=== PATIENT | female | born 1950 | race Caucasian/White ===

== ENCOUNTER → 2023-09-07 14:12 | Outpatient (REF) | payer MEDICARE, OTHER, SELFPAY | LOC: WDC 14:12 | PROVIDERS: ATTENDING PHYSICIAN Internal Medicine | DX: Z12.31 Encounter for screening mammogram for malignant neoplasm of breast (principal); R92.8 Other abnormal and inconclusive findings on diagnostic imaging of breast | CPT/HCPCS: 76642; 77063; 77067 ==

== ENCOUNTER → 2024-02-26 11:45 | Outpatient (REF) | payer MEDICARE, OTHER, SELFPAY | LOC: RAD 11:45 | PROVIDERS: ATTENDING PHYSICIAN Internal Medicine Rheumatology | DX: M25.511 Pain in right shoulder (principal) | CPT/HCPCS: 73030 ==

== ENCOUNTER 2024-05-07 09:55 | Outpatient (RCR) | payer MEDICARE, OTHER, SELFPAY | END 2024-05-07 23:59 | disposition home or self-care (01) | LOC: RPT 09:55 | PROVIDERS: ATTENDING PHYSICIAN Internal Medicine Rheumatology | DX: M75.51 Bursitis of right shoulder (principal); Z73.6 Limitation of activities due to disability | CPT/HCPCS: 97010; 97110; 97140; 97162 ==

== ENCOUNTER 2024-06-19 11:15 | Outpatient (RCR) | payer MEDICARE, OTHER, SELFPAY | END 2024-06-19 23:59 | disposition home or self-care (01) | LOC: RPT 11:15 | PROVIDERS: ATTENDING PHYSICIAN Internal Medicine Rheumatology | DX: M75.51 Bursitis of right shoulder (principal); Z73.6 Limitation of activities due to disability | CPT/HCPCS: 97010; 97110; 97140 ==

== ENCOUNTER 2024-07-16 13:33 | Outpatient (RCR) | payer MEDICARE, OTHER, SELFPAY | END 2024-07-16 23:59 | disposition home or self-care (01) | LOC: RPT 13:33 | PROVIDERS: ATTENDING PHYSICIAN Internal Medicine Rheumatology | DX: M75.51 Bursitis of right shoulder (principal); Z73.6 Limitation of activities due to disability; M62.81 Muscle weakness (generalized) | CPT/HCPCS: 97010; 97110; 97140 ==

== ENCOUNTER 2024-07-23 11:13 | Outpatient (RCR) | payer MEDICARE, OTHER, SELFPAY | END 2024-07-23 12:07 | disposition home or self-care (01) | LOC: RPT 11:13 | PROVIDERS: ATTENDING PHYSICIAN Internal Medicine Rheumatology | DX: M75.51 Bursitis of right shoulder (principal); Z73.6 Limitation of activities due to disability; M62.81 Muscle weakness (generalized) | CPT/HCPCS: 97010; 97110 ==

== ENCOUNTER → 2024-12-06 07:23 | Outpatient (REF) | payer MEDICARE, OTHER, SELFPAY | LOC: RAD 07:23 | PROVIDERS: ATTENDING PHYSICIAN Internal Medicine; FAMILY PHYSICIAN Internal Medicine | DX: R05.2 Subacute cough (principal); D84.9 Immunodeficiency, unspecified | CPT/HCPCS: 71046 ==

== ENCOUNTER → 2025-02-20 10:18 | Outpatient (REF) | payer MEDICARE, OTHER, SELFPAY | LOC: HWRAD 10:18 | PROVIDERS: ATTENDING PHYSICIAN Physician Assistant; FAMILY PHYSICIAN Internal Medicine | DX: R63.4 Abnormal weight loss (principal); R53.83 Other fatigue | CPT/HCPCS: 74176 ==

== ENCOUNTER 2025-02-27 19:31 | Inpatient (IN) | payer MEDICARE, OTHER, SELFPAY ==
[2025-02-27 13:26] VITALS: BP 194/103
--- NOTE | 2025-02-27 15:52 | ED.GENMED ---
History of Present Illness
<Thang Casey PA-C - Last Filed: 02/28/25 18:13>
General
Chief Complaint: Abnormal Lab Value
Time Seen by Provider: 02/27/25 15:32
History of Present Illness
History of Present Illness:
74-year-old female with history of Churg-Nathalia syndrome, hypertension, and hyperlipidemia presents to the emergency department due to a reportedly positive blood culture. She states she has been seeing her paint preparer for ongoing symptoms that
include fatigue, malaise, and periods of tachycardia that have been ongoing for the past 3 months. She apparently had labs done earlier this week and was told she had a 'positive blood culture for staph'. I have no records available at initial
evaluation and is uncertain whether this was Staph aureus or Staph epidermidis. She notes that at initial onset of symptoms she had a positive Lyme titer and was treated with doxycycline however did not feel any improvement. Denies shortness of
breath or dyspnea. Does have a poor appetite and unintentional weight loss but denies any night sweats.
Review of Systems
<Thang Casey PA-C - Last Filed: 02/28/25 18:13>
Review of Systems
Allergies reviewed?: Yes
All Other Systems: ROS reviewed and negative except as documented in HPI and ROS
Phy Exam
<Thang Casey PA-C - Last Filed: 02/28/25 18:13>
Physical Exam
Physical Exam:
GEN: Well appearing, NAD, WDWN
HEENT: Oral mucosa moist, no scleral icterus
Cardiac: Regular rate and rhythm, no murmur
Lung: No respiratory distress, no tachypnea, lungs clear to auscultation
MSK: No gross deformity or injuries
Skin: Good color, no pallor or jaundice, no rashes
Neuro: AO x3, moves all extremities freely
Psych: Calm, cooperative
Course
<Thang Casey PA-C - Last Filed: 02/28/25 18:13>
Orders/Labs/Results
Orders:
Orders
02/27/25 Breakfast
Regular
At Your Request: Full Participation
Does patient need a safe tray?: No
02/27/25 16:19
Complete Blood Count/With Diff Urgent
Comprehensive Metabolic Panel Urgent
Blood Culture Q30M
GERI Source: Blood/Venous
Specimen Description:
Blood Culture Q30M
GERI Source: Blood/Venous
Specimen Description:
02/27/25 17:29
Azithromycin 500 mg/250 ml [Zithromax Infusion] 500 mg in 250 ml IV NOW
CefTRIAXone [Rocephin] 1,000 mg IV NOW STA
02/27/25 17:30
0.9% Sodium Chloride 500 ml [Nss] 500 ml IV BOLUS
02/27/25 17:52
CRP [C-Reactive Protein] Urgent
ESR [Erythrocyte Sed Rate] Urgent
LDH Urgent
02/27/25 18:56
CR Chest - 2 Views Urgent
Comment:
Reason For Exam: weakness, night sweats
02/27/25 19:00
Admit/Transfer Patient As Directed
Co-Sign Provider:
Level of Care: Inpatient admission
Assign to:: Medical/Surgical
Physician / Group: Htay
Diagnosis: Pneumonia
Reason for Hospitalization: IV abx
Expected length of stay greater than two midnights?: Yes
ELOS- Estimated Length of Stay in days: 3
I certify the patient meets the requirements for IP care: Yes
PRN Pain Medication Management As Directed
May give lesser potent ordered pain med per pt: Yes
preference::
Protocol:: Medication orders for pain may be administered in a
manner that supports deferring to patient preference
when the pt is:
- Requesting an ordered lesser potent pain medication.
Least to most potent pain medications are defined
as: acetaminophen < NSAID < tramadol < opioids
(morphine, oxycodone, hydromorphone).
- Requesting a lesser dose of the same medication IF
ORDERED.
- Requesting a less intrusive route of administration
if both routes are prescribed by the provider (PO <
IV).
02/27/25 19:01
Code Status As Directed
Resuscitation Status: Full Code
02/27/25 21:21
0.9% Sodium Chloride 1000 ml [Nss] 1,000 ml IV 100 mls/hr
Acetaminophen [Tylenol] 650 mg PO Q4HPRN PRN
02/27/25 21:21
Activity As Directed
Activity Level: Out of Bed-Early Mobility
With Assistance
Vital Signs As Directed
Frequency: Per unit guidelines
DX Deep Vein Thrombosis Video Routine
02/27/25 22:00
Rosuvastatin Calcium [Crestor] 10 mg PO HS
02/28/25 00:00
Cefepime HCl [Maxipime] 1,000 mg IV Q6H
02/28/25 07:32
Basic Metabolic Panel IN AM
Complete Blood Count/No Diff IN AM
02/28/25 08:00
Amlodipine [Norvasc] 5 mg PO DAILY
Doxycycline [Vibramycin] 100 mg PO Q12
02/28/25 18:00
Enoxaparin Sodium [Lovenox] 40 mg SC QPM
Abnormal Lab Results
02/27/25 02/27/25
16:19 17:52
WBC 13.2 H 10^3/uL
(4.8-10.8)
RBC 3.98 L 10^6/uL
(4.20-5.40)
Hgb 11.0 L g/dL
(12.0-16.0)
Hct 34.0 L %
(37.0-47.0)
MCHC 32.4 L g/dL
(33.0-37.0)
RDW 14.9 H %
(11.5-14.5)
Plt Count 595 H 10^3/uL
(130-400)
Abs Immat Gran (auto) 0.1 H 10^3/uL
(0-0.05)
Absolute Neuts (auto) 9.2 H 10^3/uL
(1.4-6.5)
Absolute Monos (auto) 1.0 H 10^3/uL
(0.1-0.6)
Lymphocytes % 19.1 L %
(20.5-51.1)
ESR 88 H mm/hour
(0-20)
Creatinine 1.1 H mg/dL
(0.6-1.0)
Glucose 103 H mg/dl
(70-99)
C-Reactive Protein 46.80 H mg/L
(0.0-10.00)
02/27/25 16:19
02/27/25 16:19
Vital Signs
Initial and Last Documented VS:
Initial Vital Signs
Temp Pulse Resp BP Pulse Ox
98.4 F 103 18 194/103 99
02/27/25 13:26 02/27/25 13:26 02/27/25 13:26 02/27/25 13:26 02/27/25 13:26
Last Documented Vital Signs
Temp Pulse Resp BP Pulse Ox
98.9 F 73 18 135/73 96
02/28/25 15:00 02/28/25 15:00 02/28/25 15:00 02/28/25 15:00 02/28/25 15:00
<Elliot Cox MD - Last Filed: 02/27/25 17:31>
Orders/Labs/Results
Orders:
Orders
02/27/25 Breakfast
Regular
At Your Request: Full Participation
Does patient need a safe tray?: No
02/27/25 16:19
Complete Blood Count/With Diff Urgent
Comprehensive Metabolic Panel Urgent
Blood Culture Q30M
GERI Source: Blood/Venous
Specimen Description:
Blood Culture Q30M
GERI Source: Blood/Venous
Specimen Description:
02/27/25 17:29
Azithromycin 500 mg/250 ml [Zithromax Infusion] 500 mg in 250 ml IV NOW
CefTRIAXone [Rocephin] 1,000 mg IV NOW STA
02/27/25 17:30
0.9% Sodium Chloride 500 ml [Nss] 500 ml IV BOLUS
02/27/25 17:52
CRP [C-Reactive Protein] Urgent
ESR [Erythrocyte Sed Rate] Urgent
LDH Urgent
02/27/25 18:56
CR Chest - 2 Views Urgent
Comment:
Reason For Exam: weakness, night sweats
02/27/25 19:00
Admit/Transfer Patient As Directed
Co-Sign Provider:
Level of Care: Inpatient admission
Assign to:: Medical/Surgical
Physician / Group: Htay
Diagnosis: Pneumonia
Reason for Hospitalization: IV abx
Expected length of stay greater than two midnights?: Yes
ELOS- Estimated Length of Stay in days: 3
I certify the patient meets the requirements for IP care: Yes
PRN Pain Medication Management As Directed
May give lesser potent ordered pain med per pt: Yes
preference::
Protocol:: Medication orders for pain may be administered in a
manner that supports deferring to patient preference
when the pt is:
- Requesting an ordered lesser potent pain medication.
Least to most potent pain medications are defined
as: acetaminophen < NSAID < tramadol < opioids
(morphine, oxycodone, hydromorphone).
- Requesting a lesser dose of the same medication IF
ORDERED.
- Requesting a less intrusive route of administration
if both routes are prescribed by the provider (PO <
IV).
02/27/25 19:01
Code Status As Directed
Resuscitation Status: Full Code
02/27/25 21:21
0.9% Sodium Chloride 1000 ml [Nss] 1,000 ml IV 100 mls/hr
Acetaminophen [Tylenol] 650 mg PO Q4HPRN PRN
02/27/25 21:21
Activity As Directed
Activity Level: Out of Bed-Early Mobility
With Assistance
Vital Signs As Directed
Frequency: Per unit guidelines
DX Deep Vein Thrombosis Video Routine
02/27/25 22:00
Rosuvastatin Calcium [Crestor] 10 mg PO HS
02/28/25 00:00
Cefepime HCl [Maxipime] 1,000 mg IV Q6H
02/28/25 07:32
Basic Metabolic Panel IN AM
Complete Blood Count/No Diff IN AM
02/28/25 08:00
Amlodipine [Norvasc] 5 mg PO DAILY
Doxycycline [Vibramycin] 100 mg PO Q12
02/28/25 18:00
Enoxaparin Sodium [Lovenox] 40 mg SC QPM
Abnormal Lab Results
02/27/25 02/27/25
16:19 17:52
WBC 13.2 H 10^3/uL
(4.8-10.8)
RBC 3.98 L 10^6/uL
(4.20-5.40)
Hgb 11.0 L g/dL
(12.0-16.0)
Hct 34.0 L %
(37.0-47.0)
MCHC 32.4 L g/dL
(33.0-37.0)
RDW 14.9 H %
(11.5-14.5)
Plt Count 595 H 10^3/uL
(130-400)
Abs Immat Gran (auto) 0.1 H 10^3/uL
(0-0.05)
Absolute Neuts (auto) 9.2 H 10^3/uL
(1.4-6.5)
Absolute Monos (auto) 1.0 H 10^3/uL
(0.1-0.6)
Lymphocytes % 19.1 L %
(20.5-51.1)
ESR 88 H mm/hour
(0-20)
Creatinine 1.1 H mg/dL
(0.6-1.0)
Glucose 103 H mg/dl
(70-99)
C-Reactive Protein 46.80 H mg/L
(0.0-10.00)
02/27/25 16:19
02/27/25 16:19
Vital Signs
Initial and Last Documented VS:
Initial Vital Signs
Temp Pulse Resp BP Pulse Ox
98.4 F 103 18 194/103 99
02/27/25 13:26 02/27/25 13:26 02/27/25 13:26 02/27/25 13:26 02/27/25 13:26
Last Documented Vital Signs
Temp Pulse Resp BP Pulse Ox
98.9 F 73 18 135/73 96
02/28/25 15:00 02/28/25 15:00 02/28/25 15:00 02/28/25 15:00 02/28/25 15:00
Gregorylt;Thang Casey PA-C - Last Filed: 02/28/25 18:13>
MDM/Problems Addressed
MDM/Problems Addressed:
Several [place] connect messages sent to rheumatology team involving this patient's care in order to obtain blood cultures. I did also call the rheumatology office and was unable to speak with anyone. We will resend blood cultures at this time as
either way, whether epidermidis or aureus, repeat cultures will be warranted. Will also send basic labs. Unfortunately during my discussion with the patient about the potential differences in plan of care between the 2 bacterial species she
informing that she no longer wished to be seen by a physician assistant education director, care will be transferred to attending physician Dr. Cox
<Thang Casey PA-C - Last Filed: 02/28/25 18:13>
*Pulse Oximetry
SaO2: 99
Patient hypoxic: no
*Critical Care Note
Total Time (30-74mins, 75-104mins- exclusive of procedures): Not Applicable
ED Attending Note
<Thang Casey PA-C - Last Filed: 02/28/25 18:13>
-
Portions of this chart may have been created with voice recognition software.� Occasional wrong word or��sound alike� substitutions may have occurred due to the inherent limitations of voice recognition software.
<Elliot Cox MD - Last Filed: 02/27/25 17:31>
ED Attending Note
Patient seen and examined by attending physician: Yes
ED Attending Note:
I have seen and evaluated the patient with a [id number] encounter. I have spoken to the advance practicer provider and involved in the medical history, the physical exam, medical decision making.
Evaluation and management service: agree unless noted differently below.
Results interpretation: agree unless noted differently below.
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
in the setting of recent malaise. The short story is that the patient was sent for outpatient blood work on 02/24 which included a set of blood cultures; she received a call today that her blood culture was positive. We reviewed the results that
were faxed over from her paint preparer who initially sent the studies�it appears the blood culture was positive in one bottle for Staph epidermidis. The rest of her lab work interestingly showed elevation of inflammatory markers as well as a
marked leukocytosis to almost 18.
Patient reports that she has been feeling unwell for months. It sounds like she initially had a long bout of COVID related symptoms in November that eventually resolved with time and supportive care. Then in early December she began having joint pains
and was seen by her paint preparer who thought it could be autoimmune issue�she was started on a taper of prednisone at the time which seem to help with the joint pains. As part of her workup for her joint pain she was tested for Lyme's which was
positive and she was on a 30-day course of doxycycline which she finished in early January. She says that after completing doxycycline she felt better for a few days but then in mid January she began to feel very unwell once again�she reports
symptoms have been consistent since then. She reports generalized malaise. She says she feels palpitations and notes that she is having bouts of tachycardia. She says that she has had night sweats and tactile fever (she says measured temperature
max 99 �F). She has had persistent cough which she says is worse at nighttime. She does not feel short of breath and has not noticed any chest pain. She denies any abdominal pain, vomiting or diarrhea although she does report poor appetite. She
says that in addition to all of the symptoms over the past 6 months she has had a roughly 30 pound unintentional weight loss. She was ultimately seen once again by her paint preparer who ultimately ordered outpatient blood testing as well as a CT
of the chest/abdomen/pelvis�lab results were as noted above including blood culture positive for Staph epidermidis and CT was done here at [place] and seem to show pneumonia in the right midlung.
Physical exam:
General: Awake, alert, oriented x3; no acute distress
Head: Normocephalic, atraumatic
Eyes: Conjunctiva normal, EOMI
Throat: Airway intact, handling secretions
Neck: Trachea midline, supple without meningismus
Lungs: Clear to auscultation bilaterally, no wheezing, rales, rhonchi
Heart: Regular rate and rhythm, no murmurs, gallops, or rubs appreciated
Abd: Soft, non distended, nontender
Neuro: Grossly intact
Skin: Warm and dry with no rash noted
Extremities: No edema in extremities, equal pulses in all extremities
Medical Decision Makin-year-old female presents to the ER after being called for positive outpatient blood culture; this test was sent in the setting of multiple symptoms including malaise, palpitations/tachycardia, cough, night sweats/chills
and low-grade fever. Vitals here were significant for hypertension and tachycardia but no tachypnea or hypoxia-by my assessment blood pressure and tachycardia had improved. Labs were sent off including a CBC which showed persistent leukocytosis to
13.2, elevated platelet count. Chemistry showed creatinine 1.1 increased from prior baseline in 2020 although not significantly changed from labs drawn Monday (creatinine 1.04 at that time). Overall regarding her presenting complaint suspect that
the positive blood cultures and a contaminant given it was positive for Staph epidermidis and patient does not have artificial valve/hardware. We did resend blood cultures today which should be followed up. Suspect that finding on CT likely
represents pneumonia given her overall clinical picture; she is immune suppressed on rituximab. Will plan to admit on IV antibiotics to treat presumed pneumonia for now can follow-up blood cultures which again are likely contaminant rather than
true positive. Case discussed with hospitalist for admission.
Discharge Plan
Departure
Patient Disposition: Admit
Date of Disposition: 02/27/25
Time of Disposition: 17:32
Admit to doctor: Qiana
Presentation/result/management discussed w/ accepting MD/DO: Hospitalist
Discharge Problem:
Pneumonia, Blood culture positive
Interventions
Interventions:
*Risk Screen - Suicide Last Done: 02/27/25 21:26
*General Assessment Last Done: 02/27/25 16:41
*Neglect/Abuse Screening Last Done: 02/27/25 16:41
*ED- Fall Risk Assessment Last Done: 02/27/25 16:41
*ED COVID-19 Vaccine History Last Done: 02/27/25 21:26
*ED Influenza Vaccine History Last Done: 02/27/25 16:41
*Nursing Disposition Last Done: 02/27/25 21:17
Discharge Date and Time
Discharge Date/Time: 02/27/25 21:18
[2025-02-27 16:19] VITALS: BMI 33.5
[2025-02-27 16:23] VITALS: BP 142/77
[2025-02-27 16:30] LABS: Hematocrit 34.0 % (37.0-47.0); Hemoglobin 11.0 g/dL (12.0-16.0); Mean Corp Hgb Conc. 32.4 g/dL (33.0-37.0); Mean Corpuscular Volume 85.4 fL (81.0-99.0); Nucleated Red Blood Cells % 0 %; Platelet Count 595 10^3/uL (130-400); Red Cell Dist. Width 14.9 % (11.5-14.5)
[2025-02-27 16:52] LABS: ALT (SGPT) 10 U/L (0-35); AST (SGOT) 14 U/L (14-36); Albumin 3.8 g/dl (3.5-5.0); Alkaline Phosphatase 94 U/L (38-126); Blood Urea Nitrogen 15 mg/dl (7-17); Calcium 10.0 mg/dl (8.4-10.2); Carbon Dioxide 26 mmol/L (22-30); Chloride 106 mmol/L (98-107); Estimated Creatinine Clearance 53 ml/min; Glucose 103 mg/dl (70-99); Potassium 4.5 mmol/L (3.5-5.1); Sodium 139 mmol/L (135-145); Total Protein 6.3 g/dl (6.3-8.2); eGFR 52.40
[2025-02-27] MEDS: ROCEPHIN 1000 MG IV (17:46)
[2025-02-27] MEDS: NSS 500 IV (17:49)
[2025-02-27] MEDS: ZITHROMAX INFUSION 250 IV (17:50)
[2025-02-27 18:19] LABS: LDH 143 U/L (120-246)
[2025-02-27 18:23] LABS: C-Reactive Protein 46.80 mg/L (0.0-10.00)
--- NOTE | 2025-02-27 18:33 | W.PN.UPDATE ---
Update Note
Progress Note Update
This note serves as an addendum to the H&P by secretary specialist Jeanmarie CLARKE
HPI
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
- seen at ER for reportedly POS BCx - Staph epidermidis x 1 bottle
- has been seeing Marketing Operations Specialist for ongoing symptoms
- fatigue, malaise, and periods of tachycardia that have been ongoing for the past 3 months.
- labs done earlier this week - positive BCx for staph
- have no records available at initial evaluation and is uncertain whether this was Staph aureus or Staph epidermidis.
- notes that at initial onset of symptoms she had a positive Lyme titer and was treated with doxycycline however did not feel any improvement.
ROS
Denies shortness of breath or dyspnea.
Does have a poor appetite and unintentional weight loss but denies any night sweats.
PHX
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
Osteopenia of multiple sites
ANCA-associated vasculitis
Mixed hyperlipidemia
Hypercholesterolemia
Nephrolithiasis
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
Essential (primary) hypertension
Relevant VS
02/27/25
13:26 02/27/25
16:19 02/27/25
16:23
Temp 98.4 F
Pulse 103 77
Resp Rate 18 18
Blood pressure 194/103 142/77
SaO2 99 98
Actual Weight 96.9 kg
PE
Gen: Not toxic
HEENT: anicteric
Neck: supple
Lungs: No respiratory distress, no tachypnea, lungs clear to auscultation
Cor: RRR S1 S2
Abdomen:�soft , NT, NG
MENTALLY RETARDED TEACHER: AAO#, NFND
MS: no edema
Psych: Calm, cooperative
Relevant Data
10/22/20 02/27/25 02/27/25
11:23 16:19 17:52
WBC 13.2 H
Hgb 11.0 L
Plt Count 595 H
Neutrophils % 69.8
Lymphocytes % 19.1 L
Eosinophils % 2.4
ESR Pending
Potassium 5.1 4.5
Creatinine 0.8 1.1 H
eGFR 52.40
Lactate Dehydrogenase 143
C-Reactive Protein 46.80 H
CXR pending
02/20/25 CT AP l Without Iv Or Oral
1. Abnormal airspace and interstitial opacity in the right middle lobe which is at least partially related to atelectasis. Infectious etiology is not completely excluded. The appearance is not typical for pulmonary malignancy, however this is
incompletely imaged and there are respiratory motion artifacts. Consider further evaluation with follow-up CT chest.
2. No acute intra-abdominal process identified.
3. Hepatic fatty infiltration.
4. Nonobstructive right nephrolithiasis.
5. Simple appearing 3.7 cm cyst along the right adnexa, probable ovarian cyst. Recommen
Last hospitalist admission:
ASSESSMENT & PLAN
Pending Rx reconciliation
02/20 CT AP POS for Abnormal airspace and interstitial opacity in the right middle lobe which is at least partially related to atelectasis.
ZAKI with eGFR 52
- check CXR
- Empiric IV CFP and PO Doxy for now
- f/u BCx
OP POS BCx for Staph epidermidis
- BCx times 2 sent
- POS BCx , to consider evaluation for endocarditis
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
- No longer on PO Prednisone
Essential HTN on ARB
- ZAKI with eGFR 52
- Hold ARB and FU Cr
- c/w Amlodipine
HLD
- c/w Rosuvastastin
DVT Px: LMWH
Code: Full code
IP MS
--- NOTE | 2025-02-27 19:03 | HPS.HSE ---
Family Physician
-
Family Physician: Catalino Flores
Chief Complaint
-
Weakness
History of Present Illness
Patient is a 74 y/o female past medical history of hypertension, hyperlipidemia, and ANCA positive vasculitis with lung involvement on intermittent Rituxan who presents with weakness. Patient reports feeling unwell since the summer. She had COVID
in November and was also treated for Lyme disease. Despite this she has continued to feel poorly. She noted continued low grade fevers as well as intermittent night sweats. Part of her infectious work-up included blood cultures which were positive for
staph epidermis in one bottle. She has had a Abdomen/Pelvis CT scan with noted abnormality in the right lung.
Medical History
Past Medical History
Past Medical History: Reports Other
Additional Past Medical History:
Essential Hypertension
Hyperlipidemia
ANCA-Associated Vasculitis with Lung Involvement
Past Surgical History: Reports Other
Additional Past Surgical History:
Myomectomy
Ankle Surgery
Social History
Tobacco: Non-smoker
Alcohol: None
Family History
Family History: Not pertinent
Allergies / Home Medications
Allergies reflects when Allergies were last updated in [facility].
Home Medications with original date entered in [facility]
Allergy/Medication List:
Allergies
Allergy/AdvReac Type Severity Reaction Status Date / Time
Penicillins Allergy Hives Verified 02/27/25 13:28
Home Medications
amlodipine 5 mg tablet 5 mg PO DAILY 02/27/25
losartan 100 mg tablet 100 mg PO DAILY 02/27/25
rosuvastatin 10 mg tablet 10 mg PO HS 02/27/25
Review of Systems
-
A 12 point ROS was completed and negative except as noted: Yes
Constitutional: Reports Fever and Night Sweats
Respiratory: Reports Cough (Intermittent); Denies Trouble Breathing
Cardiac: Denies Chest Pain or Palpitations
Abdomen/GI: Denies Abdominal Pain
: Denies Dysuria
Physical Exam
Vital Signs
Vital Signs
Temp Pulse Resp BP Pulse Ox
98.4 F 77 18 142/77 98
02/27/25 13:26 02/27/25 16:23 02/27/25 16:23 02/27/25 16:23 02/27/25 16:23
Physical Exam
General: Comfortable and Conversant
HEENT: Anicteric and Moist mucous membranes
Respiratory: Clear and Non Labored Respirations
Cardiac: S1/S2 and Regular Rhythm
GI: Soft and Non Tender
Rectal: Deferred by Provider
Musculoskeletal: No Clubbing and No Cyanosis
Skin: Warm and Dry
Neuro: Awake, Alert, Oriented and Nonfocal/grossly intact
Psych: Calm
Laboratory Results
-
02/27/25 16:19
02/27/25 16:19
Laboratory Results
Total Bilirubin 0.2 mg/dl (0.2-1.3) 02/27/25 16:19
AST 14 U/L (14-36) 02/27/25 16:19
ALT 10 U/L (0-35) 02/27/25 16:19
Alkaline Phosphatase 94 U/L (38-126) 02/27/25 16:19
Data Reviewed
-
Lab Data: Labs Reviewed by me
Impression/Plan
-
Right Middle Lobe Opacity, possible pneumonia vs lung disease related to vasculitis
-Check CXR
-Continue Cefepime and Doxycycline
Positive Blood Culture - 1 bottle with staph epidermis unclear
-Recheck blood cultures x 2
Acute Renal Insufficiency
-Hold losartan
-Give IVFs
-Recheck labs in AM
Essential Hypertension
-Continue amlodipine
-Hold losartan
Hyperlipidemia
-Continue rosuvastatin
ANCA - Associated Vasculitis
-Patient receives intermittent Rituxan
DVT proph: Lovenox
Code Status: Full Code
[2025-02-27 20:54] VITALS: BP 119/83
[2025-02-27 21:35] VITALS: BMI 32.8
--- NOTE | 2025-02-27 21:35 | PTCARENOTE ---
Patient received from the ED on stretcher. Patient ambulated from stretcher to room. Vital signs stable. Oriented to room and call hung within reach.
[2025-02-27] MEDS: NSS 1000 IV (21:57)
[2025-02-27] MEDS: CRESTOR 10 MG PO (21:57)
[2025-02-27 22:03] VITALS: BP 139/68
[2025-02-27] MEDS: STERILE WATER FOR INJECTION 10 ML IV (23:53)
[2025-02-27] MEDS: MAXIPIME 1000 MG IV (23:54)
[2025-02-28 00:12] VITALS: BMI 32.8
[2025-02-28] MEDS: MAXIPIME 1000 MG IV ×4 (06:15→23:32)
[2025-02-28] MEDS: STERILE WATER FOR INJECTION 10 ML IV ×4 (06:15→23:32)
[2025-02-28 07:00] VITALS: BP 142/66
[2025-02-28 07:49] LABS: Hematocrit 34.2 % (37.0-47.0); Hemoglobin 10.4 g/dL (12.0-16.0); Mean Corp Hgb Conc. 30.4 g/dL (33.0-37.0); Mean Corpuscular Volume 87.2 fL (81.0-99.0); Platelet Count 559 10^3/uL (130-400); Red Cell Dist. Width 15.0 % (11.5-14.5)
[2025-02-28] MEDS: VIBRAMYCIN 100 MG PO ×2 (08:06→21:41)
[2025-02-28] MEDS: NORVASC 5 MG PO (08:07)
[2025-02-28 08:20] LABS: Blood Urea Nitrogen 10 mg/dl (7-17); Calcium 9.6 mg/dl (8.4-10.2); Carbon Dioxide 25 mmol/L (22-30); Chloride 108 mmol/L (98-107); Estimated Creatinine Clearance 82 ml/min; Glucose 132 mg/dl (70-99); Potassium 4.7 mmol/L (3.5-5.1); Sodium 140 mmol/L (135-145); eGFR > 60.00
[2025-02-28] MEDS: MUCINEX PO (10:11)
--- NOTE | 2025-02-28 11:15 | W.PN.HOSP.TC ---
Today's Communication/Plan
-
continue Cefepime/Doxy
monitor O2 needs
collect UA and urine tests
monitor blood cultures
Assessment / Plan
Assessment / Plan
Assessment:
Right middle lobe and lower lobe pneumonia
- on CXR
- continue Cefepime/Doxy
- sputum culture
- supportive care, mucolytics, IS/Acapella
Reported Staph bacteremia outpatient
- no records available
- repeat blood cultures pending
Acute Renal Insufficiency
- continue IVF
- holding ARB
Essential Hypertension
- continue amlodipine
- holding ARB
Hyperlipidemia
- continue rosuvastatin
ANCA - Associated Vasculitis
- Patient receives intermittent Rituxan
DVT proph: Lovenox
Code Status: Full Code
Anticipated Discharge: Within 24 hours
Subjective/Interval History
-
Date of Service: February 28, 2025
resting comfortably, no complaints at present
Objective Data
-
Labs:
Laboratory Results
02/28/25
07:32
WBC 12.9 H
Hgb 10.4 L
Hct 34.2 L
Plt Count 559 H
Sodium 140
Potassium 4.7
Chloride 108 H
Carbon Dioxide 25
BUN 10
Creatinine 0.7
Glucose 132 H
Calcium 9.6
Vital Signs:
Vital Signs
Temp Pulse Resp BP Pulse Ox
98.0 F 87 18 142/66 99
02/28/25 07:00 02/28/25 07:00 02/28/25 07:00 02/28/25 07:00 02/28/25 07:00
I&O
02/27/25 02/28/25 03/01/25
06:59 06:59 06:59
Intake Total 240 / 240
Balance 240 / 240
Physical Exam
-
General: Well Nourished and No Apparent Distress
HEENT: Normocephalic and Atraumatic
Respiratory: Negative Wheezes
Cardiac: Regular Rhythm and S1/S2
GI: Soft and Nontender
Neuro: AO x 3
Psych: Calm
Data Reviewed
-
Total Time Spent with Patient (in minutes): 41
Labs: Labs Reviewed by me
[2025-02-28 11:22] VITALS: BMI 32.8
--- NOTE | 2025-02-28 11:49 | CM ---
CM reviewed chart, patient seen bedside with sister, initial assessment completed.
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
Patient resides independently in a multiple story home, four steps to enter through garage, full flight of steps to bedroom.
Patient denies use of DME, denies VN/SNF hx.
PCP Catalino Flores
Pharmacy [facility] [address], confirms prescription coverage (Medicare Part D)
Patient denies insecurities at home.
CM will continue to follow for all d/c planning needs.
Plan; home no needs anticipated
[2025-02-28 12:07] VITALS: BP 150/66; PULSE 78; O2SAT 99
[2025-02-28 12:09] LABS: Urine Character Clear (Clear)
[2025-02-28] MEDS: NSS 1000 IV ×2 (12:09→23:32)
--- NOTE | 2025-02-28 12:16 | PTOTSP ---
Patient demonstrates safe and independent mobility, asymptomatic and vitals stable with activity, no skilled physical therapy needs at this time.
[2025-02-28 12:37] LABS: Urine Urothelial Cell 0-2 /LPF (FEW)
[2025-02-28 12:38] LABS: Urine Red Blood Cell 0-2 /HPF (0-2)
[2025-02-28 15:00] VITALS: BP 135/73
[2025-02-28] MEDS: LOVENOX 40 MG SC (17:33)
[2025-02-28] MEDS: CRESTOR 10 MG PO (21:41)
[2025-02-28] MEDS: MUCINEX 1200 MG PO (21:41)
[2025-02-28 23:10] VITALS: BP 143/65
[2025-03-01] MEDS: STERILE WATER FOR INJECTION 10 ML IV ×2 (06:31→11:07)
[2025-03-01] MEDS: MAXIPIME 1000 MG IV ×2 (06:31→11:08)
[2025-03-01 07:00] VITALS: BP 143/56
[2025-03-01] MEDS: NORVASC 5 MG PO (08:35)
[2025-03-01] MEDS: VIBRAMYCIN 100 MG PO (08:35)
[2025-03-01] MEDS: MUCINEX 1200 MG PO (08:35)
[2025-03-01 09:44] LABS: Hematocrit 30.2 % (37.0-47.0); Hemoglobin 9.7 g/dL (12.0-16.0); Mean Corp Hgb Conc. 32.1 g/dL (33.0-37.0); Mean Corpuscular Volume 85.6 fL (81.0-99.0); Platelet Count 489 10^3/uL (130-400); Red Cell Dist. Width 14.8 % (11.5-14.5)
[2025-03-01 10:13] LABS: Blood Urea Nitrogen 9 mg/dl (7-17); Calcium 9.3 mg/dl (8.4-10.2); Carbon Dioxide 24 mmol/L (22-30); Chloride 108 mmol/L (98-107); Estimated Creatinine Clearance 96 ml/min; Glucose 129 mg/dl (70-99); Potassium 4.0 mmol/L (3.5-5.1); Sodium 139 mmol/L (135-145); eGFR > 60.00
--- NOTE | 2025-03-01 13:04 | W.PN.HOSP.TC ---
Addendum entered and electronically signed by Wilson Velazquez MD 03/05/25 10:37:
ZAKI was present on admission
Original Note:
Today's Communication/Plan
-
dc to home
PCP f/u and labs in 1 week
Assessment / Plan
Assessment / Plan
Assessment:
Right middle lobe and lower lobe pneumonia
- on CXR
- Dc on Cefdinir and Doxy x 12 further days
- sputum culture
- supportive care, mucolytics, IS/Acapella
Reported Staph bacteremia outpatient - suspect contaminant as only in 1 bottle
- no records available
- repeat blood cultures NGTD
Acute Renal Insufficiency
- resolved
- resume ARB at discharge
Essential Hypertension
- continue amlodipine
- resume ARB at discharge
Hyperlipidemia
- continue rosuvastatin
ANCA - Associated Vasculitis
- Patient receives intermittent Rituxan
DVT proph: Lovenox
Code Status: Full Code.
More than 30 minutes spent in discharge including
Final examination of the patient
Summarizing hospital stay
Instructions for continuing care to all relevant caregivers
Preparation of discharge records, prescriptions, and referral forms
Total time spent (in minutes):41
Anticipated Discharge: Today
Subjective/Interval History
-
Date of Service: March 01, 2025
resting comfortably, no complaints
remains off O2
Objective Data
-
Labs:
Laboratory Results
03/01/25
09:05
WBC 14.2 H
Hgb 9.7 L
Hct 30.2 L
Plt Count 489 H
Sodium 139
Potassium 4.0
Chloride 108 H
Carbon Dioxide 24
BUN 9
Creatinine 0.6
Glucose 129 H
Calcium 9.3
Vital Signs:
Vital Signs
Temp Pulse Resp BP Pulse Ox
97.8 F 80 20 143/56 98
03/01/25 07:00 03/01/25 07:00 03/01/25 07:00 03/01/25 08:35 03/01/25 07:00
I&O
02/28/25 03/01/25 03/02/25
06:59 06:59 06:59
Intake Total 240 / 240 1200 / 1200 960 / 960
Balance 240 / 240 1200 / 1200 960 / 960
Physical Exam
-
General: No Apparent Distress
HEENT: Normocephalic and Atraumatic
Respiratory: Negative Wheezes
Cardiac: Regular Rhythm and S1/S2
GI: Soft and Nontender
Neuro: AO x 3
Psych: Calm
Data Reviewed
-
Total Time Spent with Patient (in minutes): 41
Labs: Labs Reviewed by me
--- NOTE | 2025-03-01 13:08 | W.DS.TRANS ---
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
-
Discharge Instructions:
Discharge Diagnosis/Procedures Right middle and lower lobe pneumonia
Diet Regular
Activity As tolerated
Blood Work CBC and BMP in 1 week - results to PCP - script
given
Instructions:
Stand-Alone Forms:
Changes to Home Medications: No
Discharge Medications:
DC Medications w/original date entered in [employer]
amlodipine 5 mg tablet 5 mg PO DAILY Blood Pressure 02/27/25
losartan 100 mg tablet 100 mg PO DAILY Blood Pressure 02/27/25
rosuvastatin 10 mg tablet 10 mg PO HS High Cholesterol 02/27/25
cefdinir 300 mg capsule 300 mg PO BID #17 caps 03/01/25
doxycycline hyclate 100 mg capsule 100 mg PO Q12 #17 caps 03/01/25
guaifenesin 600 mg tablet, extended release 12 hr 1,200 mg (2 x 600 mg) PO Q12 PRN Congestion #20 tabs 03/01/25
Home Medication Changes
Pending Results: No
Total time spent discharging patient (in min): 42
--- NOTE | 2025-03-01 13:08 | W.DCSUMMARY ---
Discharge Summary
Discharge Data
Date of Admission: 02/27/25
Date of Discharge: 03/01/25
-
Pending Results: No
Hospital Course
74 y/o F hx of vasculitis on Rituxan, presented to ER with initial concern of positive outpatient blood culture (1/2 sample - Staph epi) which was felt to be contaminant as repeat cultures were negative in hospital. She also reported malaise and
fatigue - CXR showed right middle and lower lobe pneumonia. She was started on Cefepime and Doxy and discharge on Cefdinir/Doxy. She never required O2. She will repeat labs in 1 week and follow up with PCP in 1 week; Also pulmonary medicine in 3
weeks.
Discharge Plan
-
Patient Disposition: Home (Routine Discharge)
Discharge Diagnosis/Procedures: Right middle and lower lobe pneumonia
Condition: Fair
Diet: Regular
Activity: As tolerated
Blood Work: CBC and BMP in 1 week - results to PCP - script given
Referrals:
Catalino Flores MD [Family Provider, Internal Medicine]
Referral Note: in 1 week
Prescriptions:
New
cefdinir 300 mg capsule
300 mg PO BID Qty: 17 0RF
doxycycline hyclate 100 mg Capsule
100 mg PO Q12 Qty: 17 0RF
guaifenesin 600 mg Tablet Extended Release 12hr
1,200 mg PO Q12 PRN (Reason: Congestion) Qty: 20 0RF
Continued
amlodipine 5 mg tablet
5 mg PO DAILY
losartan 100 mg tablet
100 mg PO DAILY
rosuvastatin 10 mg tablet
10 mg PO HS
Discharge Orders:
Discharge Patient (As Directed); Ordered 03/01/25
Ordered By: Wilson Velazquez
Discharge Date and Time
Print Language: TURKMEN
--- NOTE | 2025-03-01 13:43 | CM ---
Home today no needs.
Plan; Home no needs.
[2025-03-01 14:04] VITALS: BP 138/74
--- NOTE | 2025-03-04 07:44 | PN.CDI ---
CDI
- -
CDI:
Physician Documentation Request
Admit Date: 02/27/25 19:31
Dear Doctor Marcus,
Please review the following and provide your response in the progress notes.
Clinical Indicators:
The diagnosis of ZAKI was documented on 02/27 H&P update note but is not consistently noted in subsequent documentation.
- 02/27 Update note 'ZAKI with eGFR 52'
- 03/01 PN 'Acute Renal Insufficiency'
- 3.5L IVF given
Laboratory Tests
02/27/25 02/28/25 03/01/25
16:19 07:32 09:05
Creatinine 1.1 H 0.7 0.6
eGFR 52.40 > 60.00 > 60.00
Please clarify the following:
____ - ZAKI was present on admission
____ - ZAKI was ruled out, acute renal insufficiency only
____ - Other
Use of terms such as suspected, likely, concern for, or probable (associated with a specific diagnosis that is being evaluated, monitored, or treated as if it exists) are acceptable and can be coded in the inpatient setting, when documented at the
time of discharge.
Thank you,
Brennan Coe RN
CDI Specialist
Please use your independent medical judgment in providing your response.
== END 2025-03-01 14:06 | disposition home or self-care (01) | DRG 194 ==
LOC: 4 WEST ACU 19:31
PROVIDERS: Physician Assistant; Physician Assistant Medical; ADMITTING PHYSICIAN Internal Medicine; ATTENDING PHYSICIAN Internal Medicine; EMERGENCY PHYSICIAN Emergency Medicine; FAMILY PHYSICIAN Internal Medicine
DX: J18.9 Pneumonia, unspecified organism (principal); D84.9 Immunodeficiency, unspecified; J98.11 Atelectasis; M30.1 Polyarteritis with lung involvement [Churg-Strauss]; N17.9 Acute kidney failure, unspecified; I10 Essential (primary) hypertension; E78.5 Hyperlipidemia, unspecified; E78.00 Pure hypercholesterolemia, unspecified; I77.82 Antineutrophilic cytoplasmic antibody [ANCA] vasculitis; R63.0 Anorexia; R63.4 Abnormal weight loss; R61 Generalized hyperhidrosis; Z60.2 Problems related to living alone; Z86.16 Personal history of COVID-19; Z88.0 Allergy status to penicillin; Z87.442 Personal history of urinary calculi
CPT/HCPCS: 71046; 80048; 80053; 81003; 81015; 83615; 85025; 85027; 85652; 86140; 87040; 87449; 87899; 96365; 96375; 97161; 99284

== ENCOUNTER → 2025-03-14 14:04 | Outpatient (REF) | payer MEDICARE, OTHER, SELFPAY | LOC: WDC 14:04 | PROVIDERS: ATTENDING PHYSICIAN Internal Medicine | DX: Z12.31 Encounter for screening mammogram for malignant neoplasm of breast (principal) | CPT/HCPCS: 77063; 77067 ==

== ENCOUNTER → 2025-03-18 09:01 | Outpatient (REF) | payer MEDICARE, OTHER, SELFPAY | LOC: HWRCS 09:01 | PROVIDERS: ATTENDING PHYSICIAN Physician Assistant; FAMILY PHYSICIAN Internal Medicine | DX: M25.50 Pain in unspecified joint (principal); R53.83 Other fatigue; R63.4 Abnormal weight loss; R79.82 Elevated C-reactive protein (CRP); J18.9 Pneumonia, unspecified organism | CPT/HCPCS: 71046; 93306 ==